=== PATIENT | female | born 1985 | race Caucasian/White ===

== ENCOUNTER 2020-08-28 10:42 | Outpatient (CLI) | payer OTHER, SELFPAY ==
--- NOTE | 2020-08-28 | EST_ITS ---
Patient Info Name: Bettina Pascal Age: 35 years : 1985 Gender: Female Ht: 69 in Wt: 145 lbs BSA: 1.79 m2 Heart Rhythm: Sinus Rhythm Exam Date: 08/28/2020 11:20 AM Exam Location: [facility] Stress Patient Status: Outpatient Admit Date: 08/28/2020 Staff Ordering Physician: Gino Ortega MD Attending Provider: Gino Ortega MD Exercise Technologist: Carina Choe RDCS Exam Type: CA stress test treadmill Study Info Indications I10 - Essential (primary) hypertension An exercise stress test was performed. Summary 1. No arrhythmias were observed during the examination. 2. No abnormal ST/T wave changes with exercise. 3. Exercise capacity fair to good at 6-10 METS. 4. Stress-induced chest pain. 5. Recommend additional imaging studies per clinical evaluation. Recommendations * Recommend additional imaging studies per clinical evaluation. Protocol: [facility] Stress ECG Details Stage: REST Duration (min): 5 min : 3 sec Speed (mph): 0.0 Grade (%): 0 HR (bpm): 77 SBP (mmHg): 141 DBP (mmHg): 97 METS: --- Stage: REST Duration (min): 11 min : 55 sec Speed (mph): 0.0 Grade (%): 0 HR (bpm): 80 SBP (mmHg): 141 DBP (mmHg): 97 METS: --- Stage: STAGE 1 Duration (min): 1 min : 0 sec Speed (mph): 1.7 Grade (%): 10 HR (bpm): 99 SBP (mmHg): 141 DBP (mmHg): 97 METS: --- Stage: STAGE 1 Duration (min): 2 min : 0 sec Speed (mph): 1.7 Grade (%): 10 HR (bpm): 102 SBP (mmHg): 141 DBP (mmHg): 97 METS: --- Stage: STAGE 1 Duration (min): 3 min : 0 sec Speed (mph): 1.7 Grade (%): 10 HR (bpm): 105 SBP (mmHg): 133 DBP (mmHg): 77 METS: --- Stage: STAGE 2 Duration (min): 1 min : 0 sec Speed (mph): 2.5 Grade (%): 12 HR (bpm): 115 SBP (mmHg): 133 DBP (mmHg): 77 METS: --- Stage: STAGE 2 Duration (min): 2 min : 0 sec Speed (mph): 2.5 Grade (%): 12 HR (bpm): 120 SBP (mmHg): 140 DBP (mmHg): 76 METS: --- Stage: STAGE 2 Duration (min): 3 min : 0 sec Speed (mph): 2.5 Grade (%): 12 HR (bpm): 126 SBP (mmHg): 140 DBP (mmHg): 76 METS: --- Stage: STAGE 3 Duration (min): 0 min : 55 sec Speed (mph): 3.4 Grade (%): 14 HR (bpm): 133 SBP (mmHg): 164 DBP (mmHg): 75 METS: --- Stage: RECOVERY Duration (min): 0 min : 4 sec Speed (mph): 1.5 Grade (%): 0 HR (bpm): 134 SBP (mmHg): 164 DBP (mmHg): 75 METS: --- Stage: RECOVERY Duration (min): 1 min : 4 sec Speed (mph): 0.0 Grade (%): 0 HR (bpm): 116 SBP (mmHg): 164 DBP (mmHg): 75 METS: --- Stage: RECOVERY Duration (min): 2 min : 4 sec Speed (mph): 0.0 Grade (%): 0 HR (bpm): 92 SBP (mmHg): 160 DBP (mmHg): 86 METS: --- Stage: RECOVERY Duration (min): 3 min : 4 sec Speed (mph):
== END 2020-08-28 10:43 | disposition home or self-care (01) ==
PROVIDERS: PCP Family Medicine; Visit Provider Family Medicine
DX: I10 Essential (primary) hypertension (principal); R07.89 Other chest pain
CPT/HCPCS: 93017

== ENCOUNTER 2021-01-25 18:34 | Emergency (ER) | payer OTHER, SELFPAY ==
[2021-01-25 18:43] VITALS: BP 184/130; PULSE 127; RESP 16; TEMP 36.9; O2SAT 98
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
[2021-01-25 19:30] LABS: Basophils Absolute Auto 0.1 K/mm3 (0.0-0.1); Basophils Percent Auto 0.6 % (0.2-1.2); Eosinophils Percent Auto 0.2 % (0-4.4); Immature Granulocyte Absolute 0.06 K/mm3 (0.00-0.031); Immature Granulocyte Percent A 0.5 % (0-0.5); Lymphocytes Absolute Auto 2.29 K/mm3 (0.9-3.2); Lymphocytes Percent Auto 18.3 % (18.3-44.2); Mean Corpuscular HGB Conc 33.3 g/dl (32-36); Mean Corpuscular Hemoglobin 29.6 pg (26-34); Mean Corpuscular Volume 88.9 fl (80-100); Mean Platelet Volume 9.4 fl (7.4-10.4); Neutrophils Percent Auto 72.4 % (45.5-73.1); Platelet Count Result 385 k/mm3 (150-375); Red Blood Count 4.05 M/mm3 (4.2-5.4); Red Cell Distribution Width 14.2 % (11.5-14.5); White Blood Count 12.5 K/mm3 (4.5-10.0)
[2021-01-25 19:36] LABS: Add Urine Microscopic? YES; Appearance Urine Cloudy (Clear); Bacteria Urine Trace /hpf; Bilirubin Urine Negative (Negative); Blood Urine Negative (Negative); Color Urine Yellow (Yellow); Glucose Urine UA Negative (Negative); Hyaline Casts Urine 20-29 /lpf; Ketones Urine Negative (Negative); Leukocyte Esterase Ur Trace LEU/UL (Negative); Mucus Urine Moderate /lpf; Nitrate Urine Negative (Negative); Protein Urine 3+ mg/dL (Negative); Specific Grav Ur 1.028 (1.001-1.035); Squamous Epithelial Cell Urine Many /hpf (Few); Urobilinogen Urine Negative mg/dL (<2.0)
[2021-01-25 19:42] LABS: Alanine Aminotransferase 39 U/L (4-35); Albumin Level 4.9 g/dL (3.5-5.1); Alkaline Phosphatase 56 U/L (38-126); Anion Gap 12 mmol/L (8-16); Aspartate Amino Transferase 34 U/L (14-36); Bilirubin,Total 0.4 mg/dL (0.2-1.3); Blood Urea Nitrogen 15 mg/dL (7-17); Calcium 9.6 mg/dL (8.4-10.2); Carbon Dioxide 24 mmol/L (22-30); Chloride 103 mmol/L (98-107); Estimated CRCL calculation 81 ml/min; Estimated Glomerular Filt Rate > 60; Glucose 113 mg/dL (65-105); Potassium 3.8 mmol/L (3.4-5.0); Sodium 139 mmol/L (137-145)
[2021-01-25] MEDS: LORazepam (*CRX) 0.5 MG TABLET PO (19:42)
[2021-01-25 19:43] LABS: Ethanol < 10 mg/dL (<10)
[2021-01-25 20:04] LABS: Amphetamine Screen Urine Negative (Negative); Barbiturate Screen Urine Negative (Negative); Benzodiazepines Screen Urine Negative (Negative); Cannabinoid Screen Urine Negative (Negative); Cocaine Screen Urine Negative (Negative); Methadone Screen Urine Negative (Negative); Opiate Screen Urine Negative (Negative); Phencyclidine Screen Urine Negative (Negative)
[2021-01-26] MEDS: NITROFURANTOIN MONOHYD MACROCR 100 MG CAP PO ×2 (00:31→08:02)
[2021-01-26 01:35] VITALS: BP 153/115; PULSE 89; RESP 18; O2SAT 100
[2021-01-26] MEDS: cloNIDine HCL 0.2 MG TABLET PO (02:15)
[2021-01-26] MEDS: METOPROLOL SUCCINATE EXT REL 50 MG TABCR PO (02:15)
[2021-01-26 05:15] VITALS: BP 151/107; PULSE 61; RESP 22; O2SAT 100
[2021-01-26 06:30] VITALS: BP 146/111; PULSE 62; RESP 18; O2SAT 100
--- NOTE | 2021-01-26 06:37 | PC.NURSE ---
called [facility], converse with stephen, she advised that pt acuity is to high and was denied by there . also she called crisis and advised the same.
[2021-01-26] MEDS: amLODIPine BESYLATE 5 MG TABLET 10 MG PO (08:01)
--- NOTE | 2021-01-26 10:35 | PC.NURSE ---
Pt. stated they wanted to go home. ERP notified. ERP stated they will talk to patient. Pt. is voluntary for admission.
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
[2021-01-26] MEDS: LORazepam (*CRX) 0.5 MG TABLET PO (11:11)
[2021-01-26] MEDS: VENLAFAXINE HCL 75 MG TABLET 150 MG BY MOUTH (11:29)
--- NOTE | 2021-01-26 13:31 | PC.NURSE ---
1230 Pt. escorted by cytogenetic technologist and security to go shower. 1300 Pt. returned from shower with sitter at bedside.
[2021-01-26 13:43] VITALS: BP 143/102; PULSE 64; RESP 14; O2SAT 99
[2021-01-26] MEDS: NICOTINE (*PBKC) 14 MG PATCH 1 PATCH TRANSDERM (15:07)
--- NOTE | 2021-01-26 17:33 | PC.NURSE ---
[facility] denied patient. Crisis called to come reevaluate patient. Crisis en route for reevaluation.
[2021-01-26 18:21] LABS: SARS-CoV-2 RNA PCR Negative
--- NOTE | 2021-01-26 18:30 | PC.NURSE ---
Crisis at bedside with patient.
--- NOTE | 2021-01-26 18:48 | PC.NURSE ---
Pt. to sign a safety contract with crisis. Pt. will be discharged. Pt. denies SI/HI at this time.
[2021-01-26 18:53] VITALS: BP 161/116; PULSE 114; RESP 14; TEMP 36.9; O2SAT 100
== END 2021-01-26 19:29 | disposition home or self-care (01) ==
PROVIDERS: Emergency Medicine; Emergency Provider General Practice; PCP Family Medicine
DX: F41.9 Anxiety disorder, unspecified (principal); N39.0 Urinary tract infection, site not specified; I10 Essential (primary) hypertension; F17.290 Nicotine dependence, other tobacco product, uncomplicated; Z20.822 Contact with and (suspected) exposure to COVID-19
CPT/HCPCS: 36415; 80053; 80307; 81001; 81025; 84443; 85025; 87086; 87088; 99284; A9270; C9803; U0003; U0005

== ENCOUNTER 2021-05-31 00:15 | Emergency (ER) | payer OTHER, SELFPAY ==
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
[2021-05-31 00:12] VITALS: BP 194/140; PULSE 117; RESP 18; TEMP 36.8; O2SAT 97
--- NOTE | 2021-05-31 00:52 | PC.NURSE ---
Patient taken to CT.
[2021-05-31] MEDS: HYDROcodone/acetaminophen (*CRX) 5-325 MG TABLET 1 TAB PO (00:59)
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
[2021-05-31 02:03] VITALS: BP 190/130; PULSE 110; RESP 18; TEMP 36.7; O2SAT 100
== END 2021-05-31 02:05 | disposition home or self-care (01) ==
PROVIDERS: Emergency Provider Emergency Medicine; PCP Family Medicine
DX: S09.22XA Traumatic rupture of left ear drum, initial encounter (principal); Y04.0XXA Assault by unarmed brawl or fight, initial encounter; F41.9 Anxiety disorder, unspecified; I10 Essential (primary) hypertension
CPT/HCPCS: 70450; 99284; A9270

== ENCOUNTER 2021-12-28 18:19 | Emergency (ER) | payer OTHER, SELFPAY ==
[2021-12-28 18:43] VITALS: BP 168/118; PULSE 86; RESP 18; TEMP 36.6; O2SAT 100
--- NOTE | 2021-12-28 19:12 | ED.GENADULT ---
HPI - General Adult General Chief complaint: Skin/Abscess/Foreign Body Stated complaint: rash on rt leg Source: patient Mode of arrival: ambulatory Limitations: no limitations History of Present Illness HPI narrative: Patient is a 36-year-old female who presents to the [facility] via POV accompanied by significant other for evaluation of a skin problem located on right lower leg that has been present for 1 week. Additionally, patient reports the area to be erythematous, tender, and swollen. No improvement with Neosporin or peroxide. Related Data Home Medications Medication Instructions Recorded Confirmed hydroxyzine HCl 50 mg PO QID 01/26/21 08/24/21 metoprolol succinate 150 mg PO DAILY 12/28/21 12/28/21 Allergies Allergy/AdvReac Type Severity Reaction Status Date / Time No Known Allergies Allergy Verified 12/28/21 18:58 Review of Systems Review of Systems: Denies injury. Pertinent negatives fever, chills, sweats, malaise, poor p.o. intake, change in appetite, headache, LOC, dizziness, streaking, drainage, numbness, tingling, loss of sensation, foreign body sensation, deformity, sob, chest pain, and heart palpitations/murmurs. PMFSH Past Medical History Medical History Anxiety Hypertension Surgical History Surgical History No pertinent past surgical history Family History Family History Father Diabetes mellitus Cerebrovascular accident Family history of malignant neoplasm Family history of kidney disease Mother Heart disease Thyroid disorder Grandparent Alcoholism Grandparent Alcoholism Depression Hypertension Social History Social History Smoking status: Current every day smoker Tobacco type: e-cigarettes/vaping Alcohol intake: current Substance use: never Substance use type: does not use Comments I have reviewed and agree with the patient's past medical, surgical, social, and family hx as documented by the RN. There is no relevant family history pertinent to the presenting complaint. Exam Narrative: GENERAL: Well-appearing, well-nourished, and in no acute distress. HEAD: Normocephalic, atraumatic. No facial swelling appreciated. EYES: PERRLA and EOMI. No evidence of erythema, swelling, or drainage. ENT: Nares clear, no rhinorrhea or epistaxis.Mucous membranes moist and pink. Uvula is midline without erythema and swelling. No evidence of obstruction, petechial rash, cobblestoning, lesions, ulcers, erythema, swelling, exudates, peritonsillar abscess, tenting, or drooling. Breath odor and voice normal. NECK: Supple. No Lymphadenopathy or nuchal rigidity appreciated. CHEST: Bilateral lung whipple are clear to auscultation. No respiratory distress. No evidence of cough or pleuritic cp upon examination. HEART: Regular rate and rhythm. No murmur, gallop, or rub heard. EXTREMITIES: Normal range of motion. No edema. SKIN: Warm, dry. Multiple small ulcerations noted to posterior aspect of right lower leg. Mild cellulitis is surrounding one of the lesions. No evidence of abscess, streaking, induration, abrasions/lacerations, petechiae, hematoma, contusion, drainage, or bleeding. NEURO: No focal deficits. Alert and oriented x3. Course Course Level of Care: Express Care Visit Vital Signs Vital signs: Vital Signs Temperature 97.8 F 12/28/21 18:43 Pulse Rate 86 12/28/21 18:43 Respiratory Rate 18 12/28/21 18:43 Blood Pressure 168/118 H 12/28/21 18:43 Pulse Oximetry 100 12/28/21 18:43 Temperature 97.8 F 12/28/21 18:43 Pulse Rate 86 12/28/21 18:43 Respiratory Rate 18 12/28/21 18:43 Blood Pressure 168/118 H 12/28/21 18:43 Pulse Oximetry 100 12/28/21 18:43 Medical Decision Making Differential Diagnos
[2021-12-28 19:30] VITALS: BP 150/100
== END 2021-12-28 19:30 | disposition home or self-care (01) ==
PROVIDERS: Emergency Provider Nurse Practitioner Family; PCP Family Medicine
DX: L03.115 Cellulitis of right lower limb (principal); F17.290 Nicotine dependence, other tobacco product, uncomplicated; F41.9 Anxiety disorder, unspecified; I10 Essential (primary) hypertension
CPT/HCPCS: 99213; G0463

== ENCOUNTER 2022-06-01 12:59 | Outpatient (CLI) | payer OTHER, SELFPAY ==
[2022-06-01 13:16] LABS: Basophils Absolute Auto 0.1 K/mm3 (0.0-0.1); Basophils Percent Auto 0.7 % (0.2-1.2); Eosinophils Absolute Auto 0.2 K/mm3 (0-0.3); Eosinophils Percent Auto 2.5 % (0-4.4); Hematocrit 37.3 % (37.0-47.0); Immature Granulocyte Absolute 0.01 K/mm3 (0.00-0.031); Immature Granulocyte Percent A 0.1 % (0-0.5); Lymphocytes Absolute Auto 2.78 K/mm3 (0.9-3.2); Lymphocytes Percent Auto 40.8 % (18.3-44.2); Mean Corpuscular HGB Conc 32.2 g/dl (32-36); Mean Corpuscular Hemoglobin 29.5 pg (26-34); Mean Corpuscular Volume 91.6 fl (80-100); Mean Platelet Volume 10.1 fl (7.4-10.4); Monocytes Absolute Auto 0.6 K/mm3 (0.1-0.6); Monocytes Percent Auto 8.1 % (2.6-8.5); Neutrophils Absolute Auto 3.3 K/mm3 (1.3-6.7); Neutrophils Percent Auto 47.8 % (45.5-73.1); Platelet Count Result 395 k/mm3 (150-375); Red Blood Count 4.07 M/mm3 (4.2-5.4); Red Cell Distribution Width 14.1 % (11.5-14.5); White Blood Count 6.8 K/mm3 (4.5-10.0)
[2022-06-01 13:28] LABS: Alanine Aminotransferase 27 U/L (6-35); Albumin Level 4.6 g/dL (3.5-5.1); Alkaline Phosphatase 42 U/L (38-126); Anion Gap 6 mmol/L (8-16); Aspartate Amino Transferase 26 U/L (14-36); Bilirubin,Total 0.3 mg/dL (0.2-1.3); Blood Urea Nitrogen 22 mg/dL (7-17); Calcium 9.3 mg/dL (8.4-10.2); Carbon Dioxide 31 mmol/L (22-30); Chloride 99 mmol/L (98-107); Cholesterol 265 mg/dL (0-200); Estimated Glomerular Filt Rate > 60; Glucose 104 mg/dL (65-110); HDL Direct 66 mg/dL; Potassium 4.2 mmol/L (3.4-5.0); Sodium 136 mmol/L (137-145); Triglycerides 154 mg/dL (<150)
[2022-06-01 13:39] LABS: LDL Cholesterol Direct 157 mg/dL
[2022-06-01 14:01] LABS: Total Triiodothyronine (T3) 1.25 NG/ML (0.97-1.69)
[2022-06-01 14:19] LABS: Free T4 Free Thyroxine 1.05 ng/mL (0.78-2.19); Vitamin D 25 Hydroxy 42.9 ng/mL
== END 2022-06-01 13:00 | disposition home or self-care (01) ==
LOC: ANHLAB 13:01
PROVIDERS: PCP Family Medicine; Visit Provider Nurse Practitioner Adult Health
DX: E55.9 Vitamin D deficiency, unspecified (principal); I10 Essential (primary) hypertension; Z13.1 Encounter for screening for diabetes mellitus
CPT/HCPCS: 36415; 80053; 80061; 82306; 83036; 84439; 84443; 84480; 85025

== ENCOUNTER 2023-07-13 12:01 | Outpatient (CLI) | payer OTHER, SELFPAY ==
--- NOTE | ~2023-07-13 | MM_ITS ---
EXAMINATION: MM scrn kraig implant BI w janna HISTORY: Screening mammogram TECHNIQUE: Craniocaudal and mediolateral oblique 3-D tomosynthesis images with implant displacement a nd synthetic 2-D images were generated. Craniocaudal and mediolateral oblique views of the breasts wi thout implant displacement were obtained using full field digital mammography. CAD analysis was submi tted and interpreted. COMPARISON: 05/24/2019 BREAST PARENCHYMAL COMPOSITION: The breasts are heterogeneously dense, which may obscure small masses . FINDINGS: There is no evidence of suspicious mass, calcification, or architectural distortion to sugg est malignancy in either breast. There has been no suspicious interval change. IMPRESSION: 1. No mammographic evidence of malignancy. 2. Recommend routine screening mammography in one year. BI-RADS Category 1: Negative Reviewed, dictated and finalized at location A.
== END 2023-07-13 12:02 | disposition home or self-care (01) ==
LOC: ANHIMG 12:04
PROVIDERS: PCP Family Medicine; Visit Provider Nurse Practitioner Adult Health
DX: Z12.31 Encounter for screening mammogram for malignant neoplasm of breast (principal)
CPT/HCPCS: 77063; 77067

== ENCOUNTER 2024-02-05 15:21 | Emergency (ER) | payer OTHER, SELFPAY ==
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
[2024-02-05 15:30] VITALS: BP 147/98; PULSE 85; RESP 18; TEMP 36.6; O2SAT 100
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
[2024-02-05] MEDS: CYCLOBENZAPRINE HCL 10 MG TABLET PO (19:18)
[2024-02-05] MEDS: NAPROXEN 500 MG TABLET PO (19:19)
== END 2024-02-05 19:25 | disposition home or self-care (01) ==
PROVIDERS: Emergency Provider Nurse Practitioner Family; PCP Family Medicine
DX: S16.1XXA Strain of muscle, fascia and tendon at neck level, initial encounter (principal); G44.89 Other headache syndrome; I10 Essential (primary) hypertension; F17.290 Nicotine dependence, other tobacco product, uncomplicated; M47.812 Spondylosis without myelopathy or radiculopathy, cervical region; V43.62XA Car passenger injured in collision with other type car in traffic accident, initial encounter
CPT/HCPCS: 70450; 72125; 99284; A9270

== ENCOUNTER 2024-02-10 14:27 | Outpatient (CLI) | payer OTHER, SELFPAY ==
[2024-02-10 15:11] LABS: Basophils Absolute Auto 0.1 K/mm3 (0.0-0.1); Basophils Percent Auto 1.4 % (0.2-1.2); Eosinophils Absolute Auto 0.8 K/mm3 (0-0.3); Hematocrit 39.9 % (37.0-47.0); Hemoglobin 12.9 g/dL (12.0-15.0); Immature Granulocyte Absolute 0.02 K/mm3 (0.00-0.031); Immature Granulocyte Percent A 0.3 % (0-0.5); Lymphocytes Absolute Auto 2.16 K/mm3 (0.9-3.2); Lymphocytes Percent Auto 28.1 % (18.3-44.2); Mean Corpuscular HGB Conc 32.3 g/dl (32-36); Mean Corpuscular Volume 92.8 fl (80-100); Monocytes Absolute Auto 0.5 K/mm3 (0.1-0.6); Monocytes Percent Auto 6.4 % (2.6-8.5); Neutrophils Absolute Auto 4.1 K/mm3 (1.3-6.7); Neutrophils Percent Auto 53.8 % (45.5-73.1); Platelet Count Result 378 k/mm3 (150-375); Red Cell Distribution Width 12.9 % (11.5-14.5); White Blood Count 7.7 K/mm3 (4.5-10.0)
[2024-02-10 15:19] LABS: Alanine Aminotransferase 51 U/L (6-35); Albumin Level 4.7 g/dL (3.5-5.1); Alkaline Phosphatase 48 U/L (38-126); Anion Gap 6 mmol/L (8-16); Aspartate Amino Transferase 43 U/L (14-36); Bilirubin,Total 0.7 mg/dL (0.2-1.3); Blood Urea Nitrogen 22 mg/dL (7-17); Calcium 9.7 mg/dL (8.4-10.2); Carbon Dioxide 27 mmol/L (22-30); Chloride 102 mmol/L (98-107); Cholesterol 287 mg/dL (0-200); Estimated Glomerular Filt Rate > 60; Glucose 104 mg/dL (65-110); HDL Direct 77 mg/dL; Potassium 3.8 mmol/L (3.4-5.0); Sodium 135 mmol/L (137-145); Triglycerides 129 mg/dL (<150)
[2024-02-10 15:30] LABS: LDL Cholesterol Direct 195 mg/dL
== END 2024-02-10 14:28 | disposition home or self-care (01) ==
LOC: ANHLAB 14:29
PROVIDERS: PCP Family Medicine; Visit Provider Family Medicine
DX: E78.5 Hyperlipidemia, unspecified (principal); I10 Essential (primary) hypertension
CPT/HCPCS: 36415; 80053; 80061; 85025